=== PATIENT | female | born 1975 | race Two or more races ===

== ENCOUNTER 2018-11-10 22:10 | Emergency (ER) | payer SELFPAY ==
[~2018-11-10] VITALS: Ht 152.4 cm; Wt 76.0 kg
[2018-11-10] MEDS ORDERED: ONDANSETRON HCL 4MG/2ML INJ IV STA (22:50)
[2018-11-10] MEDS ORDERED: KETOROLAC 30MG/ML VIAL IV STA (22:50)
[2018-11-10] MEDS ORDERED: SODIUM CHLORIDE 0.9% 1,000 ML IV ONE ×2 (22:50)
[2018-11-10] MEDS ORDERED: LORAZEPAM 2MG/ML CPJ IV ONE (23:00)
[2018-11-10 23:20] LABS: HEMATOCRIT. 39.5 % (36.0-48.0); HEMOGLOBIN. 12.6 g/dL (12.0-16.0); LYMPHOCYTES % 28.1 % (20.0-50.0); MEAN CORPUSCULAR HEMOGLOBIN 24.5 pg (28.0-32.0); MEAN CORPUSCULAR VOLUME 77.1 fL (81.0-99.0); MEAN PLATELET VOLUME 8.3 fl (7.4-10.4); MONOCYTES % 8.8 % (2.0-8.0); NEUTROPHILS % 61.1 % (40.0-76.0); PLATELET 390 x1000/uL (130-400); RED BLOOD CELL COUNT 5.12 mill/uL (4.2-5.4); RED CELL DISTRIBUTION WIDTH 17.6 % (11.6-14.6)
[2018-11-10 23:24] LABS: CHLORIDE 107 mEq/L (98-107)
[2018-11-11 00:33] LABS: HCG SCREEN NEGATIVE
[2018-11-11] MEDS ORDERED: TAMSULOSIN HCL 0.4MG SR CAPSULE PO ONE (02:15)
[2018-11-11] MEDS ORDERED: MORPHINE SULFATE 10 MG/ML CPJ IV ONE (02:15)
[2018-11-11 02:58] LABS: CLARITY URINE CLEAR (CLEAR); COLOR URINE YELLOW (YELLOW); KETONES URINE NEGATIVE (NEGATIVE); LEUKOCYTE ESTERASE URINE 1+ (NEGATIVE); NITRITE URINE NEGATIVE (NEGATIVE); OCCULT BLOOD URINE 1+ (NEGATIVE); PROTEIN URINE NEGATIVE (NEGATIVE); SPECIFIC GRAVITY URINE 1.016 (1.005-1.030); UROBILINOGEN URINE 0.2 E.U./dL (0.2-1.0)
[2018-11-11 06:27] VITALS: BP 129/88
== END 2018-11-11 06:35 | disposition home or self-care (01) ==
LOC: ER 22:10
DX: N20.1 Calculus of ureter (principal); N39.0 Urinary tract infection, site not specified; Z88.2 Allergy status to sulfonamides; Z87.442 Personal history of urinary calculi
CPT/HCPCS: 36415; 74176; 80053; 81003; 81025; 83605; 83690; 84703; 85025; 87077; 87086; 96374; 96375; 99284; J1885; J2060; J2270; J2405; J7030; A4565